=== PATIENT | male | born 1945 | race Caucasian/White ===

== ENCOUNTER → 2019-06-13 11:45 | Outpatient (CLI) | payer MEDICARE, OTHER, SELFPAY ==
--- NOTE | 2019-06-13 | CA_ITS ---
APPROVED REPORT Exam: Pharmacologic Technologist: Nadira Michele Ht: 5 ft 9 in Wt: 175 lbs BSA: 1.95 m2 HR: 49 bpm BP: 149/63 mmHg Indications: HYPERtensive heart disease Medical History Medications: Levothyroxine,,,,, Aspirin,,,,, Pravastatin,,,,, TAMSULOSIN,,,,, CloPIdogrel,,,,, NiACIN,,,,, Finasteride,,,,, Venlafaxine,,,,, Multivitamin,,,,, Coenzyme Q10,,,,, Stress Test Details Test: LEXISCAN HR Resting HR: 53 bpm Max Heart Rate (APMHR): 145 bpm Max HR Achieved: 76 bpm Target HR (85% APMHR): 123 bpm % of APMHR: 52 Recovery HR: 56 bpm BP Resting BP: 149.0/63.0 mmHg Max BP: 149.0/63.0 mmHg Recovery BP: 140.0/60.0 mmHg ECG Clinical Exercise duration: 04:07 min Highest Stage Achieved: Stress ECG Conclusion Resting ECG: Marked sinus bradycardia, First degree AV block, Right axis deviation Symptoms: Mild malaise and headache. No chest pain Arrhythmias/Ectopy: None ST-T Changes: Allowing for motion artifact, there does not appear to be any significant changes. Conclusion: Unremarkable Lexiscan stress. Myoview images reported separately. Test Summary RECOVERY 03:24 . . 62 . 140/ 60 . . REST 07:01 . . 53 . 149/ 63 . . Stage 1 . . . . . . . Myoview Injected Stage 1 01:00 . . 70 . . . . Stage 2 01:00 . . 66 . 127/ 57 . . Stage 3 01:00 . . 60 . 138/ 57 . . Stage 4 01:00 . . 58 . 134/ 61 . . Stage 4 01:07 . . 58 . 134/ 61 . Stop exercise at 04:07 RECOVERY 01:00 . . 58 . . . . RECOVERY 02:00 . . 56 . 141/ 57 . . RECOVERY 03:00 . . 56 . 140/ 60 . . RECOVERY 03:24 . . 62 . 140/ 60 . . Electronically signed by : Alfonso Oswald, 06/14/2019 09:12:02
--- NOTE | 2019-06-13 11:45 | NM_ITS ---
APPROVED REPORT Exam: Nuclear Stress Test Indication: HTN HEART DISEASE, H/O TIA, RBBB, CAD, HYPERLIPIDEMIA, FM. HX, FATIGUE Patient Location: Outpatient Stress Tech: Nadiradeedee Michele NE Tech:Marilyn Martins, ARRT, RT (R)(N) Ht: 5 ft 9 in Wt: 175 lbs HR: 49 bpm BP: 149/63 mmHg BSA: 1.95 m2 BMI: 25.8 History: [place] HEART DISEASE, H/O TIA, RBBB, CAD, HYPERLIPIDEMIA, FM. HX, FATIGUE Procedure: Patient received a 0.4 mg of intravenous Lexiscan, resting heart rate 49 bpm, resting blood pressure 149/63 mmHg, with Lexiscan maximum heart rate achived was 71 bpm which is % of the maximum predicted heart rate and blood pressure was 127/57 mmHg. With Lexiscan, patient denied any complaint of chest pain. Cardiac Stress and Resting SPECT Images: Cardiac Stress and Resting SPECT images were obtained using technetium 99m Myoview 32.1 mCi stress and 10.96 mCi at rest. EF 55% Reversible defect infero lateral wall Conclusion: ABNORMAL ISCHEMIC CHANGE INFERO LAT WALL NORMAL EF 55% Electronically signed by : Lavell Garcia MD 06/15/2019 16:08:14
--- NOTE | 2019-06-13 13:28 | HMH.ITSHM ---
Current Home Medications as stated by this patient José Miguel Asencio or patient representative. []PLAVIX SYNTHROID VENLAFAXINE PROBIOTIC VITAMIN D3 OMEGA NIACIN ASA DOSAMIN CHONDROTIN PRAVASTATIN
== END ==
PROVIDERS: PCP Family Medicine; Visit Provider Physician Assistant
DX: G45.9 Transient cerebral ischemic attack, unspecified (principal); I11.9 Hypertensive heart disease without heart failure; I25.10 Atherosclerotic heart disease of native coronary artery without angina pectoris; I44.0 Atrioventricular block, first degree; I45.10 Unspecified right bundle-branch block; Z86.73 Personal history of transient ischemic attack (TIA), and cerebral infarction without residual deficits
CPT/HCPCS: 78452; 93017; 93306; A9502; J2785

== ENCOUNTER 2019-08-16 08:30 | Day surgery (SDC) | payer MEDICARE, OTHER, SELFPAY ==
[2019-08-16] VITALS (13 sets, daily range): BP systolic 100–162; BP diastolic 58–78; PULSE 54–69; RESP 16–20; TEMP 36.8; O2SAT 93–98; BMI 26.9
--- NOTE | 2019-08-16 | IR_ITS ---
APPROVED REPORT Patient Location: Outpatient Supervisor [employer] Dietary Service: KINGSLEY Nunez RT (R) PROCEDURES Left heart catheterization Left ventriculogram Selective coronary angiogram Drug-eluting stent deployment to the circumflex arteries obtuse marginal artery INDICATION Coronary artery disease, Abnormal Myoview, Preoperative risk assessment Informed consent was obtained prior to the procedure. COMPLICATIONS NONE Estimated Blood Loss: LESS THAN 1O ML TECHNIQUE One percent lidocaine used to anesthetize the right anterior aspect of the wrist. The right radial artery was accessed via the Seldinger technique. A 6 Hungarian sheath was placed in the right radial artery. 2.5 mg of verapamil, 800 mcg of nitroglycerin, 1mg Lidocaine and 5000 U Heparin were given through the arterial sheath. The trap catheter was also used to perform left heart catheterization, left ventriculogram and selective coronary angiogram. A JL 3 6 Hungarian catheter was used to intubate the left main artery therapeutic heparin was administered. A BMW wire was used to traverse the stenosis in the circumflex artery and a 2.25 x 18 mm resolute alysa stent was deployed at 18 chiara reducing the stenosis. After the delivery of the stent nitroglycerin was administered in which a proximal lesion was still identified therefore an additional 2.25 x 12 mm resolute alysa stent was placed proximal to the first stent delivered yet still overlapping the proximal portion of the stent and delivered at 18 chiara. Excellent angiographic results were obtained with HEIDY-3 flow being present down the vessel before and after the procedure. At the end of the procedure the apparatus was removed the sheath was removed good hemostasis was achieved using TR banding patient was transferred to the postop holding in stable condition ANGIOGRAPHIC RESULTS The left main artery Normal The left anterior descending artery Has a proximal 30% stenosis with remaining vessel having mild 10% luminal irregularities The circumflex artery Is a nondominant yet still large vessel giving rise to a large first obtuse marginal artery. The circumflex artery is proximally normal however the circumflex artery has an 80% complex stenosis. The right coronary artery Is a dominant vessel with mild 10% luminal irregularities The GARDNER ventriculogram reveals Normal 65% The left ventricular end-diastolic pressure 10 mmHg IMPRESSION Mild disease in the proximal LAD Severe single-vessel disease involving a large obtuse marginal artery off the nondominant circumflex artery Successful stenting of the circumflex arteries first obtuse marginal artery severe disease reduced to 0% with 2 drug-eluting stents Normal ejection fraction Normal left ventricular end-diastolic pressure PLAN 1. Dual antiplatelet therapy 2. LDL less than 55 3. Avoidance of tobacco products 4. Cardiac rehabilitation Electronically signed by : Alfonso Oswald, 08/16/2019 10:46:18
[2019-08-16 09:01] LABS: Basophils # 0.1 K/mm3 (0-0.2); Eosinophils # 0.1 K/mm3 (0.0-0.4); Eosinophils % 2.4 % (0.1-12.0); Hematocrit 44.2 % (42.0-52.0); Hemoglobin 14.4 g/dL (14.1-18.0); Lymphocytes % 33.2 % (10-50); Mean Corpuscular HGB Conc 32.6 g/dL (31.8-35.4); Mean Corpuscular Hemoglobin 28.4 pg (27.0-31.2); Mean Corpuscular Volume 87.2 fl (80-94); Monocytes # 0.4 K/mm3 (0.1-1.0); Monocytes % 6.7 % (1.7-9.3); Neutrophils # 3.4 K/mm3 (1.8-7.8); Neutrophils % 56.7 % (37.0-80.0); Platelet Count 253 K/mm3 (142-424); Red Blood Count 5.07 M/mm3 (4.60-6.20); Red Cell Distribution Width 13.6 % (11.5-17.5)
[2019-08-16 09:10] LABS: Anion Gap 7.2 mEq/L (5-15); Blood Urea Nitrogen 17 mg/dl (9-20); Calcium 9.2 mg/dl (8.4-10.2); Carbon Dioxide 29 mmol/L (22.0-30.0); Chloride 105 mmol/L (98-107); Creatinine Clearance Estimated 75 mL/min (50-200); Estimated Glomerular Filt Rate 94 ml/min (>60); GFR (African American) 114 ML/MIN (>60); Glucose 111 mg/dl (74-100); Potassium 4.2 mmoL/L (3.5-5.1); Sodium 137 mmol/L (136-145)
[2019-08-16 12:24] LABS: CATHL Activated Clotting Time > 400 SEC (74-125)
--- NOTE | 2019-08-16 14:05 | HMH.PHACLD ---
José Miguel Asencio has received discharge medication counseling on the following medications: NEW MEDICATIONS: RAMIPRIL CONTINUE MEDICATIONS: ASPIRIN, PLAVIX, PRAVASTATIN HOLDING BETA DAMIEN AT THIS TIME DUE TO LOW HR, DOCUMENTED ON CATH CHECKLIST.
== END 2019-08-16 14:36 | disposition home or self-care (01) ==
LOC: CATHLAB 08:32
PROVIDERS: PCP Family Medicine; Visit Provider Internal Medicine
DX: I25.10 Atherosclerotic heart disease of native coronary artery without angina pectoris (principal); R94.39 Abnormal result of other cardiovascular function study; E03.9 Hypothyroidism, unspecified; Z87.891 Personal history of nicotine dependence; Z79.899 Other long term (current) drug therapy; Z88.8 Allergy status to other drugs, medicaments and biological substances; I11.9 Hypertensive heart disease without heart failure
CPT/HCPCS: 80048; 85025; 85347; 92928; 93458; 99152; 99153; C1725; C1769; C1876; C9600; J1644; Q9967